=== PATIENT | female | born 1995 | race Asian ===

== ENCOUNTER 2018-05-02 15:44 | Emergency (ER) | payer OTHER ==
[~2018-05-02] VITALS: Ht 167.6 cm; Wt 159.0 kg
[2018-05-02 15:54] VITALS: BP 157/94
[2018-05-02] MEDS ORDERED: AZIT-57 PO (16:29)
== END 2018-05-02 16:40 | disposition home or self-care (01) ==
LOC: ER 15:45
DX: H66.93 Otitis media, unspecified, bilateral (principal); Z79.899 Other long term (current) drug therapy
CPT/HCPCS: 99283